=== PATIENT | female | born 1990 | race Hispanic/Latino ===

== ENCOUNTER 2019-07-20 13:00 | Emergency (ER) | payer SELFPAY ==
[2019-07-20 13:29] LABS: #Lymphocytes 2.3 thou/uL (1.20-3.40); #Monocytes 0.6 thou/uL (0.11-0.59); #Neutrophils 12.9 thou/uL (1.40-6.50); %Basophils 0.1 % (0.0-1.0); %Eosinophils 0.3 % (0.0-10.0); %Lymphocytes 14.3 % (21.0-51.0); %Neutrophils 81.2 % (42.0-75.0); Hemoglobin 13.2 g/dL (12.0-16.0); Mean Corpuscular HGB CONC 34.2 g/dL (32.0-36.0); Mean Corpuscular Hemoglobin 29.7 pg (27.0-31.0); Mean Platelet Volume 6.9 fL (7.4-10.4); Platelet Count 368 thou/uL (130-400); RBC Distribution Width 11.1 % (11.5-14.5); Red Blood Cell (RBC) Count 4.43 mill/uL (4.20-5.40); White Blood Cell (WBC) Count 15.8 thou/uL (4.8-10.8)
[2019-07-20 13:54] LABS: ALT (SGPT) 14 U/L (8-55); AST (SGOT) 15 U/L (5-34); Albumin 4.1 g/dL (3.5-5.0); Alkaline Phosphatase 80 U/L (40-110); Anion Gap 10 mmol/L (10-20); BUN (Urea Nitrogen) 9 mg/dL (7.0-18.7); Bilirubin, Total 0.6 mg/dL (0.2-1.2); Calc. Creatinine Clearance 0 mL/min (70-130); Calcium 8.6 mg/dL (7.8-10.44); Carbon Dioxide 24 mmol/L (22-29); Chloride 100 mmol/L (98-107); Estimated GFR-MDRD Greater than 90; Glucose 95 mg/dL (70-105); Potassium 3.4 mmol/L (3.5-5.1); Protein, Total 7.1 g/dL (6.0-8.3); Sodium 131 mmol/L (136-145)
[2019-07-20 15:31] LABS: Bilirubin Negative (Negative); Blood, Urine Negative (Negative); Clarity Clear (Clear); Glucose, Urine (Dipstick) Normal (Negative); Leukocyte Negative Leu/uL (Negative); Nitrite Negative (Negative); Protein, Urine (Dipstick) Negative (Neg-Trace); Urobilinogen Normal mg/dL (Less than 2)
[2019-07-20 15:33] LABS: Pregnancy Test - Urine (BHCG) Negative (Negative); Pregu Control Background? CLEAR/WHITE (CLR/WHITE); Pregu Control Bar Appear? YES (CONTROL BAR); Specific Gravity 1.014 (1.002-1.036)
--- NOTE | 2019-07-20 16:13 | RAD ---
Single view chest: CLINICAL HISTORY: Cough/Fever COMPARISON: None FINDINGS: There is added density overlying the right neck and right lung apex, presumably artifact from patient 's hair. Correlate clinically. Otherwise, no consolidation. No effusion or pneumothorax. Cardiac silhouette is normal in size. No acute osseous abnormality. IMPRESSION: No focal consolidation. Presumed artifact overlying the right apex and right neck, as above.
[2019-07-20] MEDS ORDERED: Acetaminophen 500 MG TAB ONE (17:48)
[2019-07-20] MEDS ORDERED: Ketorolac Tromethamine 30 MG/ML VIAL ONE (17:48)
[2019-07-20] MEDS ORDERED: Metoclopramide HCl 10 MG/2 ML VIAL ONE (17:48)
[2019-07-20] MEDS ORDERED: diphenhydrAMINE 25 MG CAP ONE ×2 (17:48→17:51)
[2019-07-20] MEDS ORDERED: diphenhydrAMINE 50 MG/ML VIAL ONE (17:51)
[2019-07-20 17:58] LABS: Color Of CSF Supernatant COLORLESS (Colorless); Unspun CSF Color COLORLESS (Colorless)
[2019-07-20 17:59] LABS: Tube # 2
[2019-07-20 18:11] LABS: CSF Source CSF; Clarity Clear (Clear); Tube # 1; Tube # 4
[2019-07-20 18:16] LABS: CSF, Glucose 56 mg/dl (40-70); CSF, Protein 40 mg/dL (15-40)
[2019-07-20 18:34] LABS: Cell Count Non Hematic 22 %; Lymphocytes 76 %
[2019-07-20 18:40] LABS: Segmented Neutrophils 2 %
== END 2019-07-20 18:59 | disposition home or self-care (01) ==
LOC: ERS 13:00
DX: B34.9 Viral infection, unspecified (principal); R51 Headache
CPT/HCPCS: 36415; 62270; 71045; 80053; 81003; 81025; 82945; 83605; 84157; 85025; 85060; 87040; 87070; 87205; 87804; 89051; 96365; 96375; J1200; J1885; J2765; Q0163

== ENCOUNTER 2019-07-25 14:10 | Emergency (ER) | payer SELFPAY | END 2019-07-25 18:00 | disposition home or self-care (01) | LOC: ERS 14:10 | DX: G97.1 Other reaction to spinal and lumbar puncture (principal) | CPT/HCPCS: 99283 ==

== ENCOUNTER 2019-08-29 21:23 | Inpatient (IN) | payer MEDICAID, SELFPAY ==
[~2019-08-29 21:23] MED LIST: Iopamidol-370 76% 500 ML 1 ML ONE
[2019-08-29] MEDS ORDERED: Ondansetron PF 4 MG/2 ML Vial ONE (22:25)
[2019-08-29] MEDS ORDERED: Ketorolac Tromethamine 30 MG/ML VIAL ONE (22:25)
[2019-08-29 22:32] LABS: #Basophils 0.1 thou/uL (0.0-0.2); #Eosinphils 1.9 thou/uL (0.0-0.7); #Lymphocytes 3.7 thou/uL (1.20-3.40); #Monocytes 0.7 thou/uL (0.11-0.59); #Neutrophils 12.5 thou/uL (1.40-6.50); %Basophils 0.3 % (0.0-1.0); %Lymphocytes 19.8 % (21.0-51.0); %Monocytes 3.5 % (0.0-10.0); %Neutrophils 66.4 % (42.0-75.0); Hemoglobin 13.1 g/dL (12.0-16.0); Mean Corpuscular HGB CONC 34.2 g/dL (32.0-36.0); Mean Corpuscular Hemoglobin 29.3 pg (27.0-31.0); Mean Corpuscular Volume 85.8 fL (78.0-98.0); Mean Platelet Volume 7.3 fL (7.4-10.4); Platelet Count 354 thou/uL (130-400); RBC Distribution Width 11.3 % (11.5-14.5); Red Blood Cell (RBC) Count 4.45 mill/uL (4.20-5.40); White Blood Cell (WBC) Count 18.9 thou/uL (4.8-10.8)
[2019-08-29 23:00] LABS: BHCG - Serum Negative (NEGATIVE); Pregs Control Background? CLEAR/WHITE (CLR/WHITE); Pregs Control Bar Appear? YES (CONTROL BAR)
[2019-08-29 23:02] LABS: Bilirubin Negative (Negative); Blood, Urine Negative (Negative); Clarity Clear (Clear); Glucose, Urine (Dipstick) Normal (Negative); Leukocyte Negative Leu/uL (Negative); Nitrite Negative (Negative); Protein, Urine (Dipstick) Negative (Neg-Trace); Urobilinogen Normal mg/dL (Less than 2)
[2019-08-29 23:38] LABS: Albumin 4.3 g/dL (3.5-5.0)
[2019-08-29] MEDS ORDERED: Fentanyl 100 MCG/2 ML VIAL ONE (23:38)
--- NOTE | 2019-08-29 23:38 | CT ---
EXAM: Abdomen and pelvic CT scan with contrast: HISTORY: Right lower quadrant abdominal pain COMPARISON: None FINDINGS: The visualized lung bases are clear. Liver: Unremarkable. Gallbladder:Unremarkable. Pancreas:Unremarkable Spleen:Unremarkable. Adrenal glands:Unremarkable. Kidneys:No renal calculus or acute obstruction. No solid or cystic renal mass. No evidence for bowel obstruction. Abnormal dilated thick-walled enhancing appendix with periappendiceal fat stranding evidence for acut e appendicitis without evidence for free intraperitoneal air or associated abscess. The urinary bladder is unremarkable. Reproductive system:Unremarkable No abscess, adenopathy, or abnormal fluid collection within the abdomen or pelvis. IMPRESSION: Evidence for acute appendicitis. Findings were discussed with the ordering physician at 11:35 PM CODE CR
[2019-08-29 23:39] LABS: Chloride 104 mmol/L (98-107); Potassium 3.6 mmol/L (3.5-5.1); Sodium 135 mmol/L (136-145)
[2019-08-29 23:40] LABS: Calcium 8.7 mg/dL (7.8-10.44)
[2019-08-29 23:41] LABS: Globulin 2.9 g/dL (2.4-3.5); Glucose 87 mg/dL (70-105); Protein, Total 7.2 g/dL (6.0-8.3)
[2019-08-29 23:42] LABS: Anion Gap 10 mmol/L (10-20); Bilirubin, Total 0.3 mg/dL (0.2-1.2); Carbon Dioxide 25 mmol/L (22-29)
[2019-08-29 23:43] LABS: Alkaline Phosphatase 71 U/L (40-110)
[2019-08-29 23:44] LABS: Calc. Creatinine Clearance 0 mL/min (70-130); Estimated GFR-MDRD Greater than 90
[2019-08-29 23:45] LABS: BUN (Urea Nitrogen) 11 mg/dL (7.0-18.7)
[2019-08-29 23:46] LABS: ALT (SGPT) 15 U/L (8-55); AST (SGOT) 14 U/L (5-34)
[2019-08-29 23:47] LABS: Lipase 26 U/L (8-78)
[2019-08-30] MEDS ORDERED: Piperacillin/Tazobactam 4.5 GM VIAL ONE (00:03)
[2019-08-30] MEDS ORDERED: Ondansetron ODT 4 MG TAB SL PRN (01:15)
[2019-08-30] MEDS ORDERED: HYDROcodone/Acetaminophen 5/325 mg Tablet PO PRN ×2 (01:15)
[2019-08-30] MEDS ORDERED: Ondansetron PF 4 MG/2 ML Vial IVP PRN ×2 (01:15→14:30)
[2019-08-30] MEDS ORDERED: Sodium Chloride 0.9% 1,000 ML IV SCH (01:15)
[2019-08-30] MEDS ORDERED: Acetaminophen 325 MG TAB PO PRN (01:15)
[2019-08-30] MEDS ORDERED: Morphine 2 MG/ML SYRINGE SLOW IVP PRN ×2 (01:16→14:30)
[2019-08-30] MEDS: Morphine 4 MG/ML VIAL SLOW IVP PRN ×3 (01:51→10:21)
[2019-08-30 02:05] VITALS: BMI 29.9
[2019-08-30] MEDS ORDERED: Glycopyrrolate 0.2 MG/ML 5 ML SYRINGE ONE (09:44)
[2019-08-30] MEDS ORDERED: Ondansetron PF 4 MG/2 ML Vial ONE (09:44)
[2019-08-30] MEDS ORDERED: Rocuronium Bromide 10 MG/ML (10ML VIAL) ONE (09:44)
[2019-08-30] MEDS ORDERED: PROPOFOL 200 MG/20 ML VIAL ONE (09:44)
[2019-08-30] MEDS ORDERED: Lidocaine 1% PF 5 ML VIAL ONE (09:44)
--- NOTE | 2019-08-30 12:21 | HP ---
CHIEF COMPLAINT: Right lower quadrant abdominal pain. HISTORY OF PRESENT ILLNESS: This is a 29-year-old female with an 18-hour history of right lower quadrant pain associated with nausea, no vomiting. No fever or chills. PAST MEDICAL HISTORY: Otherwise healthy. PAST SURGICAL HISTORY: section. MEDICATIONS: None. ALLERGIES: NO KNOWN DRUG ALLERGIES. SOCIAL HISTORY: She lives with her boyfriend. Works at a [employer] factory. No alcohol. No tobacco. FAMILY HISTORY: Noncontributory. PHYSICAL EXAMINATION: VITAL SIGNS: Temperature 98.3, pulse 79, and blood pressure 108/70. GENERAL: She is awake and alert, lying still. HEENT: Unremarkable. LUNGS: Clear. HEART: Regular rate and rhythm. ABDOMEN: Soft, very tender to percussion in right lower quadrant. Positive Rovsing's. CT scan shows acute appendicitis. LABORATORY DATA: Her white count is 18.9, H and H are 13 and 38, and platelet count 354. Electrolytes are fine. negative. Urinalysis clear. ASSESSMENT: Acute appendicitis. PLAN: Laparoscopic appendectomy. CONSENT: I have discussed planned procedure as well as risk of bleeding, infection, injury to bowel, bladder, need to open. She understands and gives informed consent. Job ID: [id number]
[2019-08-30] MEDS ORDERED: Midazolam HCl 2 mg/2 ml Vial ONE (13:13)
[2019-08-30] MEDS ORDERED: Fentanyl 100 MCG/2 ML VIAL ONE ×3 (13:14→15:03)
[2019-08-30] MEDS ORDERED: Bupivacaine 0.25% HCL 30 ML VIAL ONE (13:20)
[2019-08-30] MEDS ORDERED: Piperacillin/Tazobactam 3.375 GM VIAL ONE (13:30)
[2019-08-30] MEDS ORDERED: Sodium Chloride 0.9% 100 ML ONE (13:30)
[2019-08-30] MEDS ORDERED: hydrALAZINE 20 MG/ML VIAL SLOW IVP PRN (14:30)
[2019-08-30] MEDS ORDERED: Dextrose 50% Abboject 50 ML SYRINGE SLOW IVP PRN (14:30)
[2019-08-30] MEDS ORDERED: Promethazine HCl 25 MG/ML VIAL IM PRN (14:30)
[2019-08-30] MEDS ORDERED: HYDROcodone/Acetaminophen 10/325 mg Tablet PO PRN ×2 (14:30)
[2019-08-30] MEDS ORDERED: Dextrose 5% in Water 1,000 ML IV PRN (14:30)
[2019-08-30] MEDS ORDERED: Morphine 4 MG/ML VIAL SLOW IVP PRN (14:30)
[2019-08-30] MEDS ORDERED: HYDROmorphone 0.5 MG/0.5 ML SYRINGE ONE (15:06)
[2019-08-30] MEDS: Piperacillin/Tazobactam 3.375 GM in Sodium Chloride 0.9% 100 ML IVPB SCH ×3 (17:53→23:08)
[2019-08-30] MEDS: D5 1/2 NS w/20 mEq KCL 1,000 ML IV SCH (19:02)
[2019-08-30] MEDS: Ketorolac Tromethamine 30 MG/ML VIAL IVP SCH ×2 (19:05→23:08)
--- NOTE | 2019-08-30 20:23 | OP ---
DATE OF PROCEDURE: 08/30/2019 PREOPERATIVE DIAGNOSIS: Acute appendicitis. PROCEDURE PERFORMED: Laparoscopic appendectomy. INDICATIONS: A 29-year-old female, who has been having about 18-hour history of right lower quadrant pain. CT showed acute appendicitis. FINDINGS: Acute suppurative nonperforated appendicitis. DESCRIPTION OF PROCEDURE: After informed consent was obtained, patient was taken to the operating room, given general endotracheal anesthesia, placed in supine position. Abdomen was prepped and draped in usual fashion. Local anesthesia was infiltrated subcutaneously and deep. A subumbilical incision was performed. Subcu divided sharply. The fascia grasped and 2 stay sutures of 0 Vicryl placed in each side of midline. Midline incised. Digital palpation revealed no local adhesions. A blunt 12 mm trocar was inserted. Pneumoperitoneum was created to a pressure of 15 mmHg. Zero degree 5 mm scope was inserted. She had quite a bit of adhesions. Her uterus was adherent to the anterior abdominal wall. I was able to insert a 5-mm port suprapubic and then another 5-mm port right lateral abdomen. The appendix was found. The mesoappendix was divided with LigaSure. The base of the appendix was divided with linear 45 mm white load stapler. The appendix was placed in endosac, removed from the abdomen and the endosac. Hemostasis was assured. The abdomen was irrigated. Irrigation fluid removed. Trocars and retractors removed. The fascia was closed with interrupted 0 Vicryl suture. The skin was closed with interrupted 4-0 Rapide. Dermabond applied. Patient tolerated the procedure well, transferred to Recovery in good condition. Sponge and needle count verified correct x2. Job ID: [id number]
[2019-08-30] MEDS ORDERED: Famotidine 20 MG TAB PO SCH (21:00)
[2019-08-30] MEDS ORDERED: Famotidine/PF 20 mg/2ml Vial SLOW IVP SCH (21:00)
[2019-08-30 23:29] VITALS: BP 94/60; TEMP 98.3
[2019-08-31] MEDS: D5 1/2 NS w/20 mEq KCL 1,000 ML IV SCH (01:42)
[2019-08-31] MEDS ORDERED: Enoxaparin Sodium 40 MG/0.4 ML SYRINGE SC SCH (09:00)
--- NOTE | 2019-08-31 10:54 | DIS ---
DATE OF ADMISSION: 08/30/2019 DATE OF DISCHARGE: 08/31/2019 DISCHARGE DIAGNOSIS: Acute appendicitis. PROCEDURES DURING ADMISSION: Laparoscopic appendectomy. HOSPITAL COURSE: The patient was admitted, given IV fluids, IV antibiotics, taken to the operating room, where she underwent a laparoscopic appendectomy. She was found to have acute suppurative, nonperforated appendicitis. Postoperatively, she is doing well. She is tolerating liquids well. She is discharged home on hydrocodone and Zofran. She will follow up with me in 2 weeks. Job ID: [id number]
== END 2019-08-31 03:46 | disposition home or self-care (01) | DRG 343 ==
LOC: ERS 21:23 → SURG B 08-30 01:24
PROVIDERS: ADMIT Surgery; ATTEND Surgery
PROC: 0DTJ4ZZ Resection of Appendix, Percutaneous Endoscopic Approach (ICD-10-PCS; principal; 2019-08-30)
DX: K35.80 Unspecified acute appendicitis (principal)
CPT/HCPCS: 36415; 74177; 80053; 81003; 83690; 84703; 85025; 88304; J1170; J1885; J2001; J2250; J2270; J2405; J2543; J2704; J3010; J3490; Q9967; S0020; S0028